=== PATIENT | female | born 2000 | race Caucasian/White ===

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

== ENCOUNTER 2020-10-02 09:46 | Emergency (ER) | payer SELFPAY ==
--- NOTE | 2020-10-02 09:56 | ED Physician Documentation ---
History of Present Illness - Stated complaint Stated Complaint: CHEST PX - Chief complaint Chief Complaint: Cardiac - History obtained from History obtained from: Patient - History of Present Illness Timing: Today, How many hours ago (5) Pain level max: 9 Pain level now: 8 - Additonal information Additional information: 19-year-old female presents to the emergency department complaining of epigastric pain. This been ongoing for the past 5 to 6 hours. Nothing makes it better or worse. No fevers. No chills. Some nausea but no vomiting. No diarrhea or constipation. Uses daily marijuana. Took Motrin without relief Review of Systems Constitutional: denies: Fever, Chills Nose: denies: Rhinorrhea / runny nose, Congestion Cardiac: denies: Chest pain / pressure Respiratory: denies: Cough GI: denies: Vomiting, Hematemesis, Bloody / black stool : denies: Dysuria Skin: denies: Rash Musculoskeletal: denies: Neck pain, Back pain Neurologic: denies: Headache PD PAST MEDICAL HISTORY - Past Medical History Respiratory: Asthma Neuro: Other Endocrine/Autoimmune: None - Past Surgical History Past Surgical History: No - Present Medications Home Medications: Ambulatory Orders Medication Instructions Recorded Confirmed Albuterol Sulf [Ventolin Hfa 2 puffs INH PRN 07/02/18 Inhaler] Famotidine [Pepcid] 20 mg ORAL DAILY 07/02/18 07/02/18 Ibuprofen [Motrin] 800 mg PO Q8H PRN #30 tablet 12/21/18 Naproxen 500 mg PO BID #20 tablet 07/22/19 Tramadol HCl 50 mg PO Q6H PRN #15 tablet 07/22/19 Promethazine [Phenergan] 25 mg PO Q6H PRN #10 tab 10/02/20 - Allergies Allergies/Adverse Reactions: Allergies Allergy/AdvReac Type Severity Reaction Status Date / Time No Known Drug Allergies Allergy Verified 07/22/19 16:13 - Social History Does the pt smoke?: No Smoking Status: Never smoker Does the pt drink ETOH?: No Does the pt have substance abuse?: No - Immunizations Immunizations are current?: Yes - POLST Patient has POLST: No PD ED PE NORMAL - Vitals Vital signs reviewed: Yes - General General: Alert and oriented X 3, No acute distress, Well developed/nourished - HEENT HEENT: PERRL, Moist mucous membranes - Neck Neck: Supple, no meningeal sign - Cardiac Cardiac: RRR, Strong equal pulses - Respiratory Respiratory: No respiratory distress, Clear bilaterally - Abdomen Abdomen: Normal bowel sounds, Soft, Non distended, Other (Negative Jarvis sign. Mild tenderness to palpation epigastric. No peritoneal signs.) - Back Back: No CVA TTP, No spinal TTP - Derm Derm: Warm and dry - Extremities Extremities: No edema - Neuro Neuro: Alert and oriented X 3 - Psych Psych: Normal mood, Normal affect Results - Vitals Vitals: Vital Signs - 24 hr 10/02/20 10/02/20 10/02/20 09:49 11:36 11:59 Temperature 36.9 C Heart Rate 52 L 53 L 53 L Respiratory 19 19 20 Rate Blood Pressure 130/89 H 139/73 H 139/73 H O2 Saturation 99 100 100 Oxygen O2 Source Room air - EKG (time done) 0948 Rate: Rate (enter#) (47) Rhythm: Sinus bradycardia, NSR (47) [place]: Normal Intervals: Normal [place] QRS: Normal Ischemia: Normal ST segments - Labs Labs: Laboratory Tests 10/02/20 10/02/20 10/02/20 09:18 10:28 10:28 WBC 13.9 H RBC 4.29 Hgb 13.0 Hct 38.7 MCV 90.2 MCH 30.3 MCHC 33.6 RDW 12.6 Plt Count 435 MPV 9.6 Neut # (Auto) 10.4 H Lymph # (Auto) 2.4 Bent # (Auto) 0.9 Eos # (Auto) 0.1 Baso # (Auto) 0.1 Absolute Nucleated RBC 0.00 Nucleated RBC % 0.0 Sodium 137 Potassium 3.6 Chloride 102 Carbon Dioxide 24 Anion Gap 11.0 BUN 7 Creatinine 0.6 Estimated GFR (MDRD) 129 Glucose 103 H Calcium 9.6 Total Bilirubin 0.3 AST 16 ALT 17 Alkaline Phosphatase 62 Total Protein 8.0 Albumin 4.5 Globulin 3.5 Albumin/Globulin Ratio 1.3 Lipase 19 L Urine Color YELLOW Urine Clarity CLEAR Urine pH 7.0 Ur Specific [place] 1.015 Urine Protein NEGATIVE Urine Glucose (UA) NEGATIVE Urine Ketones NEGATIVE Urine Occult Blood NEGATIVE Urine Nitrite NEGATIVE Urine Bilirubin NEGATIVE Urine Urobilinogen 0.2 (NORMAL) Ur Leukocyte Esterase NEGATIVE Ur Microscopic Review NOT INDICATED Urine Culture Comments NOT INDICATED Urine HCG, Qual NEGATIVE PD MEDICAL DECISION MAKING - ED course Complexity details: reviewed results, re-evaluated patient, considered differential, d/w patient ED course: 19 year old female with abdominal pain, vomiting. Appears to be secondary to likely gastroenteritis. She also has an incidental left ovarian cyst. Nonspecific gallbladder distention, no right upper quadrant tenderness on serial exam. Patient will follow up with her doctor for an outpatient ultrasound. Negative Jarvis sign. No fevers. Possible also that this could be cannabinoid induced hyperemesis as she does use daily marijuana. Did feel better after Haldol and sleeping in the emergency department. Tolerating p.o. without difficulty. Patient counseled regarding signs and symptoms for which I believe and urgent re-evaluation would be necessary. Patient with good understanding of and agreement to plan and is comfortable going home at this time This document was made in part using voice recognition software. While efforts are made to proofread this document, sound alike and grammatical errors may occur. 1. Mild segmental fluid distention of the distal ileum with gradual tapering to the ileocecal junction. No discrete focal transition point to suggest a definite obstruction. The findings likely represent an ileus or gastroenteritis. 2. Nonspecific gallbladder distention without wall thickening or calcified gallstones. No internal focus of fat density in the gallbladder may represent a small noncalcified gallstone. Recommend correlation clinically. If there is clinical suspicion for acute cholecystitis, further evaluation may be obtained with ultrasound. 3. There is a thin-walled left ovarian cyst measuring up to 8.7 cm likely repre senting a follicular cyst. Departure - Departure Disposition: 01 Home, Self Care Clinical Impression: Gastroenteritis Abdominal pain Qualifiers: Abdominal location: epigastric Qualified Code(s): R10.13 - Epigastric pain Ovarian cyst Qualifiers: Laterality: left Qualified Code(s): N83.202 - Unspecified ovarian cyst, left side Condition: Good Instructions: ED Gastroenteritis Viral Follow-Up: your,doctor in 1 week [Other] Prescriptions: Promethazine [Phenergan] 25 mg PO Q6H PRN #10 tab PRN Reason: Nausea / Vomiting Comments: Drink plenty of fluids and rest. Return if you worsen. Avoid marijuana. This is likely a viral illness. You should have an outpatient ultrasound of your gallbladder. Return if you worsen including worsening pain, vomiting or fever. You also should have a repeat ultrasound of your left ovarian cyst in about 4 to 6 weeks. This should be done with your doctor. CT Results: 1. Mild segmental fluid distention of the distal ileum with gradual tapering to the ileocecal junction. No discrete focal transition point to suggest a definite obstruction. The findings likely represent an ileus or gastroenteritis. 2. Nonspecific gallbladder distention without wall thickening or calcified gallstones. No internal focus of fat density in the gallbladder may represent a small noncalcified gallstone. Recommend correlation clinically. If there is clinical suspicion for acute cholecystitis, further evaluation may be obtained with ultrasound. 3. There is a thin-walled left ovarian cyst measuring up to 8.7 cm likely representing a follicular cyst.
[2020-10-02] MEDS ORDERED: SUCRALFATE 1 GM/10 ML UDC PO STA (10:15)
[2020-10-02] MEDS ORDERED: MAG HYDROX/AL HYDROX/SIMETH 30 ML UDC PO STA (10:15)
[2020-10-02] MEDS ORDERED: FAMOTIDINE 20 MG TABLET PO STA (10:15)
[2020-10-02] MEDS ORDERED: LIDOCAINE VISCOUS 2% 15 ML UDC MM STA (10:16)
[2020-10-02 10:34] LABS: BASOPHILS # (AUTO) 0.1 10^3/uL (0.0-0.1); BASOPHILS % (AUTO) 0.6 %; EOSINOPHILS # (AUTO) 0.1 10^3/uL (0.0-0.7); EOSINOPHILS % (AUTO) 0.6 %; LYMPHOCYTES # (AUTO) 2.4 10^3/uL (1.5-3.5); LYMPHOCYTES % (AUTO) 17.1 %; MEAN CORPUSCULAR HEMOGLOBIN 30.3 pg (27.0-31.0); MEAN CORPUSCULAR HGB CONC 33.6 g/dL (32.0-36.0); MEAN CORPUSCULAR VOLUME 90.2 fL (81.0-99.0); MEAN PLATELET VOLUME 9.6 fL (7.9-10.8); MONOCYTES # (AUTO) 0.9 10^3/uL (0.0-1.0); MONOCYTES % (AUTO) 6.5 %; NEUTROPHILS # (AUTO) 10.4 10^3/uL (1.5-6.6); NEUTROPHILS % (AUTO) 74.8 %; PLT - PLATELET COUNT 435 10^3/uL (130-450); RED BLOOD COUNT 4.29 10^6/uL (4.20-5.40); RED CELL DISTRIBUTION WIDTH 12.6 % (12.0-15.0); WHITE BLOOD COUNT 13.9 x10^3/uL (4.8-10.8)
[2020-10-02 10:49] LABS: ALBUMIN 4.5 g/dL (3.2-5.5); ALBUMIN/GLOBULIN RATIO 1.3 (1.0-2.2); BILIRUBIN,TOTAL 0.3 mg/dL (0.2-1.0); CALCIUM 9.6 mg/dL (8.5-10.3); CREATININE 0.6 mg/dL (0.4-1.0)
[2020-10-02 11:04] LABS: BILIRUBIN,URINE NEGATIVE (NEGATIVE); GLUCOSE, URINE (UA) NEGATIVE (NEGATIVE); KETONES,URINE (UA) NEGATIVE (NEGATIVE); LEUKOCYTE ESTERASE, URINE NEGATIVE (NEGATIVE); NITRITE,URINE NEGATIVE (NEGATIVE); OCCULT BLOOD,URINE NEGATIVE (NEGATIVE); PROTEIN,URINE NEGATIVE (NEGATIVE); UROBILINOGEN,URINE 0.2 (NORMAL) E.U./dL (NORMAL)
[2020-10-02 11:05] LABS: CLARITY,URINE CLEAR (CLEAR)
[2020-10-02 11:06] LABS: HCG UR QUAL NEGATIVE
[2020-10-02] MEDS ORDERED: LORazepam 2 MG/ML VIAL IVP STA (11:49)
[2020-10-02] MEDS ORDERED: PROMETHAZINE INJ 25 MG in SODIUM CHLORIDE 0.9% 50 ML IV STA (11:49)
[2020-10-02] MEDS ORDERED: HALOPERIDOL 5 MG/ML VIAL IVP STA (12:43)
[2020-10-02] MEDS ORDERED: IOVERSOL 320 100 ML VIAL IVP ONE ×2 (13:03→13:29)
--- NOTE | 2020-10-02 13:37 | CT Report ---
PROCEDURE: Abdomen/Pelvis W INDICATIONS: Abdominal pain, nausea CONTRAST: IV CONTRAST: Optiray 320 ml: 100 PO CONTRAST: *NO PO CONTRAST TECHNIQUE: After the administration of intravenous contrast, 5 mm thick sections acquired from the diaphragms to the symphysis. 5 mm thick coronal and sagittal reformats were acquired. For radiation dose reducti on, the following was used: automated exposure control, adjustment of mA and/or kV according to tushar ent size. COMPARISON: None. FINDINGS: Image quality: Excellent. ABDOMEN: Lung bases: There is mild dependent atelectasis bilaterally. Heart size is normal. Solid organs: Evaluation of the liver demonstrates no focal hepatic lesions. Gallbladder is distended without calcified gallstones or wall thickening. There is a small focus of internal fat density sugg estive of a small gallstone. Biliary system is non dilated. The spleen is normal in size. Pancreas e nhances normally without peripancreatic fat stranding or fluid collections. No adrenal nodules. Kid neys demonstrate no hydronephrosis. Peritoneum and bowel: There is mild fluid distention of the distal ileum in the lower abdomen, measu ring up to approximately 2.3 cm in diameter there are a few scattered fluid levels. There is gradual tapering distally to the terminal ileum without a focal transition point. The remainder of the small bowel is undistended proximally. The appendix is normal in appearance. There is colonic diverticulosi s without acute diverticulitis. No free fluid or air. Nodes and vessels: No retroperitoneal or mesenteric adenopathy by size criteria. Aorta and inferior vena cava are normal in size. Miscellaneous: No ventral hernias. PELVIS: Genitourinary: Bladder wall thickness is normal. There is a thin-walled left ovarian cyst measuring up to 8.7 cm likely representing a follicular cyst. Miscellaneous: No inguinal hernias or adenopathy. Bones: No suspicious bony lesions. No vertebral body compression fractures. IMPRESSION: 1. Mild segmental fluid distention of the distal ileum with gradual tapering to the ileocecal junctio n. No discrete focal transition point to suggest a definite obstruction. The findings likely represen t an ileus or gastroenteritis. 2. Nonspecific gallbladder distention without wall thickening or calcified gallstones. No internal fo cus of fat density in the gallbladder may represent a small noncalcified gallstone. Recommend correla tion clinically. If there is clinical suspicion for acute cholecystitis, further evaluation may be ob tained with ultrasound. Reviewed by: Jcarlos Srinivasan MD on 10/02/2020 1:36 PM PST Approved by: Jcarlos Srinivasan MD on 10/02/2020 1:36 PM PST Station ID: [id number]
[2020-10-02 13:58] VITALS: BP 129/72
== END 2020-10-02 13:56 | disposition home or self-care (01) ==
LOC: ED 09:46
DX: K52.9 Noninfective gastroenteritis and colitis, unspecified (principal); N83.202 Unspecified ovarian cyst, left side; K82.8 Other specified diseases of gallbladder; R00.1 Bradycardia, unspecified; F12.90 Cannabis use, unspecified, uncomplicated
CPT/HCPCS: 36415; 74177; 80053; 81003; 81025; 83690; 85025; 93005; 96365; 96375; 99284; A9270; J2060; J7040; Q9967; 81001; 87086

== ENCOUNTER 2020-11-04 18:17 | Emergency (ER) | payer MEDICAID ==
--- NOTE | 2020-11-04 18:37 | ED Physician Documentation ---
PD HPI ABD PAIN - Stated complaint Stated Complaint: CHEST & THROAT PX - Chief complaint Chief Complaint: Abd Pain - History obtained from History obtained from: Patient - Additional information Additional information: 20-year-old woman presents with what she thinks is acid reflux. Since 2 this morning she has had epigastric pain with some back heaviness. It is worse after she eats. She tried Tylenol and Pepcid without relief. She had a CT for similar issues about a month ago showing some distal ileus distention and gallbladder distention. Review of Systems Ten Systems: 10 systems reviewed and negative Constitutional: denies: Fever, Chills Cardiac: denies: Chest pain / pressure, Pedal edema, Calf pain Respiratory: denies: Dyspnea, Cough PD PAST MEDICAL HISTORY - Past Medical History Respiratory: Asthma Neuro: Other Endocrine/Autoimmune: None - Past Surgical History Past Surgical History: No - Present Medications Home Medications: Ambulatory Orders Medication Instructions Recorded Confirmed Albuterol Sulf [Ventolin Hfa 2 puffs INH PRN 07/02/18 Inhaler] Famotidine [Pepcid] 20 mg ORAL DAILY 07/02/18 07/02/18 Ibuprofen [Motrin] 800 mg PO Q8H PRN #30 tablet 12/21/18 Naproxen 500 mg PO BID #20 tablet 07/22/19 Tramadol HCl 50 mg PO Q6H PRN #15 tablet 07/22/19 Promethazine [Phenergan] 25 mg PO Q6H PRN #10 tab 10/02/20 Omeprazole 40 mg PO DAILY #30 cap 11/04/20 - Allergies Allergies/Adverse Reactions: Allergies Allergy/AdvReac Type Severity Reaction Status Date / Time No Known Drug Allergies Allergy Verified 07/22/19 16:13 - Social History Does the pt smoke?: No Smoking Status: Never smoker Does the pt drink ETOH?: No Does the pt have substance abuse?: No - Immunizations Immunizations are current?: Yes - POLST Patient has POLST: No PD ED PE NORMAL - Vitals Vital signs reviewed: Yes - General General: Alert and oriented X 3, No acute distress - HEENT HEENT: PERRL, EOMI - Neck Neck: Supple, no meningeal sign, No bony TTP - Cardiac Cardiac: RRR, No murmur - Respiratory Respiratory: No respiratory distress, Clear bilaterally - Abdomen Abdomen: Normal bowel sounds, Soft, Other (Tender in the right upper quadrant more than the epigastrium with equivocal Jarvis sign.) - Back Back: No CVA TTP, No spinal TTP - Derm Derm: Normal color, Warm and dry - Extremities Extremities: No edema, No calf tenderness / cord - Neuro Neuro: Alert and oriented X 3, Normal speech Results - Vitals Vitals: Vital Signs - 24 hr 11/04/20 11/04/20 18:26 18:28 Temperature 36.3 C L 36.3 C L Heart Rate 79 79 Respiratory 14 18 Rate Blood Pressure 135/75 H 135/75 H O2 Saturation 99 99 Oxygen O2 Source Room air - Labs Labs: Laboratory Tests 11/04/20 11/04/20 18:45 18:45 WBC 14.8 H RBC 4.13 L Hgb 12.5 Hct 38.5 MCV 93.2 MCH 30.3 MCHC 32.5 RDW 13.0 Plt Count 368 MPV 9.7 Neut # (Auto) 10.5 H Lymph # (Auto) 2.6 [place] # (Auto) 1.4 H Eos # (Auto) 0.2 Baso # (Auto) 0.1 Absolute Nucleated RBC 0.00 Nucleated RBC % 0.0 Sodium 138 Potassium 3.7 Chloride 103 Carbon Dioxide 26 Anion Gap 9.0 BUN 10 Creatinine 0.6 Estimated GFR (MDRD) 127 Glucose 96 Calcium 9.0 Total Bilirubin 0.5 AST 82 H ALT 59 Alkaline Phosphatase 61 Total Protein 7.3 Albumin 4.2 Globulin 3.1 Albumin/Globulin Ratio 1.4 Lipase 21 L PD MEDICAL DECISION MAKING - ED course ED course: 20-year-old woman presents with epigastric pain, she does have a white counts but no cholestatic picture. She did feel much better after a GI cocktail so I suspect this is predominantly GERD/gastritis. She is seeing someone about her gallbladder soon. Departure - Departure Disposition: 01 Home, Self Care Clinical Impression: Gastritis Qualifiers: Gastritis type: unspecified gastritis Chronicity: acute Gastritis bleeding: without bleeding Qualified Code(s): K29.00 - Acute gastritis without bleeding Condition: Good Record reviewed to determine appropriate education?: Yes Instructions: ED Gastritis Prescriptions: Omeprazole 40 mg PO DAILY #30 cap Comments: Keep the appointment you have to see the specialist regarding potential gallbladder issues. Return if worsening. You can take Maalox in addition to the prescription antacid for the pain.
[2020-11-04] MEDS ORDERED: LIDOCAINE VISCOUS 2% 15 ML UDC MM STA (18:38)
[2020-11-04] MEDS ORDERED: MAG HYDROX/AL HYDROX/SIMETH 30 ML UDC PO STA (18:38)
[2020-11-04 18:51] LABS: BASOPHILS # (AUTO) 0.1 10^3/uL (0.0-0.1); BASOPHILS % (AUTO) 0.6 %; EOSINOPHILS # (AUTO) 0.2 10^3/uL (0.0-0.7); EOSINOPHILS % (AUTO) 1.3 %; HCT - HEMATOCRIT 38.5 % (37.0-47.0); HGB - HEMOGLOBIN 12.5 g/dL (12.0-16.0); LYMPHOCYTES # (AUTO) 2.6 10^3/uL (1.5-3.5); LYMPHOCYTES % (AUTO) 17.3 %; MEAN CORPUSCULAR HEMOGLOBIN 30.3 pg (27.0-31.0); MEAN CORPUSCULAR HGB CONC 32.5 g/dL (32.0-36.0); MEAN CORPUSCULAR VOLUME 93.2 fL (81.0-99.0); MEAN PLATELET VOLUME 9.7 fL (7.9-10.8); MONOCYTES # (AUTO) 1.4 10^3/uL (0.0-1.0); MONOCYTES % (AUTO) 9.5 %; NEUTROPHILS # (AUTO) 10.5 10^3/uL (1.5-6.6); NEUTROPHILS % (AUTO) 70.9 %; PLT - PLATELET COUNT 368 10^3/uL (130-450); RED BLOOD COUNT 4.13 10^6/uL (4.20-5.40); WHITE BLOOD COUNT 14.8 x10^3/uL (4.8-10.8)
[2020-11-04 19:02] LABS: ALBUMIN 4.2 g/dL (3.2-5.5); ALBUMIN/GLOBULIN RATIO 1.4 (1.0-2.2); BILIRUBIN,TOTAL 0.5 mg/dL (0.2-1.0); CREATININE 0.6 mg/dL (0.4-1.0); POTASSIUM 3.7 mmol/L (3.5-5.0); TOTAL PROTEIN 7.3 g/dL (6.7-8.2)
[2020-11-04] MEDS ORDERED: PANTOPRAZOLE 40 MG TABLET PO STA (19:21)
[2020-11-04 19:29] VITALS: BP 124/80
== END 2020-11-04 19:28 | disposition home or self-care (01) ==
LOC: ED 18:17
DX: K29.00 Acute gastritis without bleeding (principal)
CPT/HCPCS: 80053; 83690; 85025; 99283; 99284; A9270; 36415

== ENCOUNTER 2021-03-30 20:28 | Emergency (ER) | payer MEDICAID ==
[2021-03-30] MEDS ORDERED: SODIUM CHLORIDE 0.9% 1,000 ML IV STA (22:00)
[2021-03-30] MEDS ORDERED: KETOROLAC 30 MG/ML VIAL IVP STA (22:00)
[2021-03-30] MEDS ORDERED: HYDROmorphone 1 MG/ML CARPUJECT IVP STA (22:00)
[2021-03-30] MEDS ORDERED: DEXAMETHASONE 10 MG/ML VIAL IVP STA (22:01)
[2021-03-30] MEDS ORDERED: PROPOFOL 200 MG/20 ML VIAL IVP STA (22:01)
--- NOTE | 2021-03-30 22:02 | ED Physician Documentation ---
PD HPI OPHTHO - Stated complaint Stated Complaint: LT EYE SWOLLEN/TOOTH PX/VOMIT - Chief complaint Chief Complaint: Heent - History obtained from History obtained from: Patient - Additional information Additional information: Progressive dental infection for the last 3 days now with significant pain and left-sided facial swelling. She has been on antibiotics for 3 days. Has seen a dentist. Review of Systems Constitutional: reports: Reviewed and negative Eyes: reports: Reviewed and negative Ears: reports: Reviewed and negative Nose: reports: Reviewed and negative Throat: reports: Reviewed and negative PD PAST MEDICAL HISTORY - Past Medical History Respiratory: Asthma Neuro: Other Endocrine/Autoimmune: None - Past Surgical History Past Surgical History: No - Present Medications Home Medications: Ambulatory Orders Medication Instructions Recorded Confirmed Albuterol Sulf [Ventolin Hfa 2 puffs INH PRN 07/02/18 Inhaler] Famotidine [Pepcid] 20 mg ORAL DAILY 07/02/18 07/02/18 Ibuprofen [Motrin] 800 mg PO Q8H PRN #30 tablet 12/21/18 Naproxen 500 mg PO BID #20 tablet 07/22/19 Tramadol HCl 50 mg PO Q6H PRN #15 tablet 07/22/19 Promethazine [Phenergan] 25 mg PO Q6H PRN #10 tab 10/02/20 Omeprazole 40 mg PO DAILY #30 cap 11/04/20 Oxycodone HCl/Acetaminophen 1 - 2 each PO Q6H PRN #14 tablet 03/30/21 [Percocet 5-325 mg Tablet] clindamycin HCL [Cleocin HCl] 300 mg PO QID #28 cap 03/30/21 - Allergies Allergies/Adverse Reactions: Allergies Allergy/AdvReac Type Severity Reaction Status Date / Time No Known Drug Allergies Allergy Verified 03/30/21 20:38 - Social History Does the pt smoke?: No Smoking Status: Never smoker Does the pt drink ETOH?: No Does the pt have substance abuse?: No - Immunizations Immunizations are current?: Yes - POLST Patient has POLST: No PD ED PE NORMAL - Vitals Vital signs reviewed: Yes - General General: Alert and oriented X 3, No acute distress - HEENT HEENT: Other (She has a abscess on the gingival area near #10 with significant facial swelling up to and around the eye.) - Neck Neck: Supple, no meningeal sign, No bony TTP - Neuro Neuro: Alert and oriented X 3, Normal speech - Psych Psych: Normal mood, Normal affect Results - Vitals Vitals: Vital Signs - 24 hr 03/30/21 20:34 Temperature 36.8 C Heart Rate 75 Respiratory 18 Rate Blood Pressure 129/77 O2 Saturation 98 Oxygen O2 Source Room air Procedures - Abscess I&D (location) Dental, L upper Incision: Incised with scalpel, Purulent drainage, Loculations broken Other: Antibiotic prescribed - Procedural sedation Sedation prep: Informed consent, Time out completed, Last meal (4hrs ago), PE performed (Mallampati 1), ASA 2 - mild disease (smoker) Sedation medications: propofol (100 mg IVP x1) Patient status during sedation: Responds to tactile, Vitals remained stable, Maintained airway Sedation recovery: Recovered uneventfully Time in sedation (Minutes): 12 PD MEDICAL DECISION MAKING - ED course ED course: 20-year-old woman with cavity related dental abscess causing significant facial cellulitis. She was sedated and the abscess was incised and drained. Given IV clindamycin here. Departure - Departure Clinical Impression: Dental abscess Condition: Good Record reviewed to determine appropriate education?: Yes Instructions: ED Dental Abscess Facial Cellulitis Follow-Up: ASHLEY FELIX [Physician No Access] - Prescriptions: clindamycin HCL [Cleocin HCl] 300 mg PO QID #28 cap Oxycodone HCl/Acetaminophen [Percocet 5-325 mg Tablet] 1 - 2 each PO Q6H PRN #14 tablet PRN Reason: pain Comments: Stop the amoxicillin, starting a different antibiotic. You have bad enough teet h issues that you probably should follow-up with an oral maxillofacial surgeon. There is one in [place]. His office is listed on this form, call Friday for an appointment. Return for new or worsening symptoms.
[2021-03-30] MEDS ORDERED: CLINDAMYCIN 600 MG/50 ML 50 ML IV ONE (22:33)
[2021-03-30] MEDS ORDERED: oxyCODONE/ACET 5/325 Prepack 4 PO STA (22:36)
[2021-03-30 23:36] VITALS: BP 123/71
== END 2021-03-30 23:45 | disposition home or self-care (01) ==
LOC: ED 20:28
DX: K04.7 Periapical abscess without sinus (principal)
CPT/HCPCS: 41800; 96365; 96375; 99152; 99283; 99284; J1170; 94770

== ENCOUNTER 2021-06-14 12:08 | Emergency (ER) | payer MEDICAID ==
--- NOTE | 2021-06-14 12:23 | ED Physician Documentation ---
PD HPI NVD - Stated complaint Stated Complaint: VOMITING,ABD PX - Chief complaint Chief Complaint: Abd Pain - History obtained from History obtained from: Patient - History of Present Illness Timing - onset: How many weeks ago (2) Timing - duration: Weeks (2) Timing - details: Gradual onset, Still present, Waxing and waning Associated symptoms: Abdominal pain (upper abdomen), Loss of appetite. No: Near syncope / syncope Review of Systems Constitutional: reports: Fatigue. denies: Fever, Chills, Myalgias Nose: denies: Rhinorrhea / runny nose, Congestion Throat: denies: Sore throat Respiratory: denies: Cough GI: reports: Abdominal Pain (has developed some pain in upper abd with vomiting.), Nausea, Vomiting. denies: Constipation, Diarrhea : reports: Now EGA (7 weeks by dates, with positive home test. Has not had GOLF TECHNICIAN appt as yet.). denies: Dysuria, Frequency Neurologic: reports: Generalized weakness. 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 - Past Surgical History Past Surgical History: Yes General: Cholecystectomy - Present Medications Home Medications: Ambulatory Orders Medication Instructions Recorded Confirmed Albuterol Sulf [Ventolin Hfa 2 puffs INH Q4HR PRN 07/02/18 Inhaler] Doxylamine Succinate [Unisom] 25 mg PO BID 30 Days #60 tablet 06/14/21 Famotidine [Pepcid] 20 mg PO DAILY #30 tablet 06/14/21 Ondansetron Odt [Zofran] 4 mg TL Q6H PRN #20 tablet 06/14/21 Pnv No.121/Iron/Folic Acid 1 tab PO DAILY 06/14/21 06/14/21 [ Multivitamin Tablet] Pyridoxine HCl (Vitamin B6) 25 mg PO BID 30 Days #60 tablet 06/14/21 [Pyridoxine HCl] dexAMETHasone [Decadron] 4 mg PO DAILY #5 tablet 06/14/21 - Allergies Allergies/Adverse Reactions: Allergies Allergy/AdvReac Type Severity Reaction Status Date / Time No Known Drug Allergies Allergy Verified 06/14/21 12:17 - Social History Does the pt smoke?: Yes Smoking Status: Current every day smoker Does the pt drink ETOH?: No Does the pt have substance abuse?: Yes - Immunizations Immunizations are current?: Yes - POLST Patient has POLST: No PD ED PE NORMAL - Vitals Vital signs reviewed: Yes - General General: Alert and oriented X 3, No acute distress, Well developed/nourished - HEENT HEENT: Pharynx benign. No: Moist mucous membranes - Neck Neck: Supple, no meningeal sign, No adenopathy - Cardiac Cardiac: RRR, No murmur - Respiratory Respiratory: Clear bilaterally - Abdomen Abdomen: Normal bowel sounds, Soft, Non distended, No organomegaly, Other (nondistended, with some tenderness epigastric area. ) - Derm Derm: Normal color, Warm and dry - Extremities Extremities: No edema, No calf tenderness / cord Results - Vitals Vitals: Oxygen O2 Source Room air - Labs Labs: Laboratory Tests 06/14/21 06/14/21 06/14/21 12:27 12:27 12:27 WBC 9.4 RBC 4.52 Hgb 13.9 Hct 40.5 MCV 89.6 MCH 30.8 MCHC 34.3 RDW 13.1 Plt Count 338 MPV 10.1 Neut # (Auto) 6.7 H Lymph # (Auto) 1.8 [place] # (Auto) 0.8 Eos # (Auto) 0.1 Baso # (Auto) 0.0 Absolute Nucleated RBC 0.00 Nucleated RBC % 0.0 Sodium 138 Potassium 3.6 Chloride 104 Carbon Dioxide 23 Anion Gap 11.0 BUN 11 Creatinine 0.4 Estimated GFR (MDRD) 203 Glucose 91 Calcium 10.2 Magnesium 1.8 Total Bilirubin 1.6 H AST 14 ALT 15 Alkaline Phosphatase 48 Total Protein 8.5 H Albumin 4.8 Globulin 3.7 Albumin/Globulin Ratio 1.3 Lipase 24 HCG, Quant 15969.00 - Rads (name of study) OB u?S Radiology: Prelim report reviewed (Single live IUP 7.3 weeks, with small 1.1 cm perigestational bleed. Ovaries normal. ), See rad report PD MEDICAL DECISION MAKING - ED course Complexity details: reviewed results ( IUP with good FHR and no acute p rocess. ), re-evaluated patient (improved symptoms. ), considered differential, d/w patient Departure - Departure Disposition: 01 Home, Self Care Clinical Impression: Dehydration, Hyperemesis gravidarum Nausea and vomiting Qualifiers: Vomiting type: unspecified Vomiting Intractability: intractable Qualified Code(s): R11.2 - Nausea with vomiting, unspecified Qualifiers: Weeks of gestation: less than 8 weeks Qualified Code(s): Z3A.01 - Less than 8 weeks gestation of Condition: Stable Record reviewed to determine appropriate education?: Yes Instructions: ED Preg Morning Sickness Prescriptions: dexAMETHasone [Decadron] 4 mg PO DAILY #5 tablet Famotidine [Pepcid] 20 mg PO DAILY #30 tablet Pyridoxine HCl (Vitamin B6) [Pyridoxine HCl] 25 mg PO BID 30 Days #60 tablet Doxylamine Succinate [Unisom] 25 mg PO BID 30 Days #60 tablet Ondansetron Odt [Zofran] 4 mg TL Q6H PRN #20 tablet PRN Reason: Nausea / Vomiting Comments: Your ultrasound is good with a normal-appearing at 7-1/2 weeks in the uterus. No other problems noted on the ultrasound. Your blood tests are looking okay. Presume your nausea and vomiting are related to the and this can be treated with medications recommended by GOLF TECHNICIAN societies for the treatment of this. This is a combination of vitamin B6 pyridoxine as well as doxylamine regularly. To that add ondansetron if needed for nausea in addition. We will also use Decadron steroid daily for 5 days to help with the settle down the nausea and vomiting in the short-term as well. With the prolonged nausea and vomiting, you likely have some irritation of the stomach so we can treat with famotidine acid reducing medicine daily for the next several weeks. All of these are safe in . Follow-up with GOLF TECHNICIAN as planned. Return to the ER sooner if needed. I transmitted your prescriptions to [facility] pharmacy in [place]. Discharge Date/Time: 06/14/21 15:10
[2021-06-14] MEDS ORDERED: FAMOTIDINE 20 MG/2 ML VIAL IVP STA (12:47)
[2021-06-14] MEDS ORDERED: ONDANSETRON 4 MG/2 ML VIAL IVP STA (12:47)
[2021-06-14] MEDS ORDERED: DEXAMETHASONE 10 MG/ML VIAL IVP STA (12:47)
[2021-06-14] MEDS ORDERED: SODIUM CHLORIDE 0.9% 1,000 ML IV STA ×2 (12:47→14:04)
[2021-06-14 12:52] LABS: BASOPHILS % (AUTO) 0.4 %; EOSINOPHILS # (AUTO) 0.1 10^3/uL (0.0-0.7); EOSINOPHILS % (AUTO) 0.5 %; HCT - HEMATOCRIT 40.5 % (37.0-47.0); HGB - HEMOGLOBIN 13.9 g/dL (12.0-16.0); LYMPHOCYTES # (AUTO) 1.8 10^3/uL (1.5-3.5); LYMPHOCYTES % (AUTO) 19.2 %; MEAN CORPUSCULAR HEMOGLOBIN 30.8 pg (27.0-31.0); MEAN CORPUSCULAR HGB CONC 34.3 g/dL (32.0-36.0); MEAN CORPUSCULAR VOLUME 89.6 fL (81.0-99.0); MEAN PLATELET VOLUME 10.1 fL (7.9-10.8); MONOCYTES # (AUTO) 0.8 10^3/uL (0.0-1.0); MONOCYTES % (AUTO) 8.1 %; NEUTROPHILS # (AUTO) 6.7 10^3/uL (1.5-6.6); NEUTROPHILS % (AUTO) 71.6 %; PLT - PLATELET COUNT 338 10^3/uL (130-450); RED BLOOD COUNT 4.52 10^6/uL (4.20-5.40); RED CELL DISTRIBUTION WIDTH 13.1 % (12.0-15.0); WHITE BLOOD COUNT 9.4 x10^3/uL (4.8-10.8)
[2021-06-14 13:08] LABS: ALBUMIN 4.8 g/dL (3.2-5.5); ALBUMIN/GLOBULIN RATIO 1.3 (1.0-2.2); BILIRUBIN,TOTAL 1.6 mg/dL (0.2-1.0); CALCIUM 10.2 mg/dL (8.5-10.3); CREATININE 0.4 mg/dL (0.4-1.0); MAGNESIUM 1.8 mg/dL (1.7-2.8); POTASSIUM 3.6 mmol/L (3.5-5.0); TOTAL PROTEIN 8.5 g/dL (6.7-8.2)
[2021-06-14] MEDS ORDERED: PROCHLORPERAZINE 10 MG/2 ML VIAL IVP STA (14:04)
--- NOTE | 2021-06-14 14:52 | Ultrasound Report ---
PROCEDURE: OB First Trimester w/TV INDICATIONS: 7 wks preg. abd pain and vomiting OUTSIDE/PRIOR DATING DATA: Last menstrual period (LMP): 04/20/2021. LMP-based estimated date of delivery (TOBI): 01/25/2022. First dating scan (date and location): 06/14/2021. Estimated date of delivery (TOBI) from first dating scan: 01/28/2022. TECHNIQUE: Real-time scanning was performed of the fetus and maternal pelvic organs, with image documentation. Endovaginal scanning was also performed to better visualize the fetus and maternal ovaries. COMPARISON: None FINDINGS: Single intrauterine gestational sac contains a pole and yolk sac. [place]-rump length measures 1. 19 cm, corresponding with a 7 week 3 day gestation. heart rate 145 bpm. There is a small subcho rionic bleed measuring 1.1 x 0.3 cm. Left ovarian simple cyst measures 4.2 x 3.3 cm. Right ovarian corpus luteum cyst measures 1.8 x 1.9 c m Measurement variability in dating: +/- 4 weeks by LMP, +/- 7 days by mean sac diameter (use before 6 weeks gestation if crown-rump length not able to be measured), +/- 5 days by crown-rump length (6-12 weeks gestation). IMPRESSION: 1. Single live intrauterine corresponds with a 7 week 3 day gestation 2. Small perigestational bleed measures 1.1 x 0.3 cm Reviewed by: John Paul MD on 06/14/2021 1:50 PM AKBERYL Approved by: John Paul MD on 06/14/2021 1:50 PM AKDT Station ID: [id number]
[2021-06-14 15:12] VITALS: BP 106/63
== END 2021-06-14 15:10 | disposition home or self-care (01) ==
LOC: ED 12:08
DX: O21.1 Hyperemesis gravidarum with metabolic disturbance (principal); O99.331 Smoking (tobacco) complicating pregnancy, first trimester; F17.200 Nicotine dependence, unspecified, uncomplicated; Z3A.01 Less than 8 weeks gestation of pregnancy
CPT/HCPCS: 36415; 80053; 83690; 83735; 84702; 85025; 96361; 96374; 96375; 99283

== ENCOUNTER 2021-08-07 11:54 | Emergency (ER) | payer MEDICAID ==
[2021-08-07 13:11] LABS: BASOPHILS # (AUTO) 0.1 10^3/uL (0.0-0.1); BASOPHILS % (AUTO) 0.4 %; EOSINOPHILS # (AUTO) 0.2 10^3/uL (0.0-0.7); EOSINOPHILS % (AUTO) 1.1 %; HCT - HEMATOCRIT 38.1 % (37.0-47.0); LYMPHOCYTES # (AUTO) 2.7 10^3/uL (1.5-3.5); LYMPHOCYTES % (AUTO) 18.6 %; MEAN CORPUSCULAR HEMOGLOBIN 31.6 pg (27.0-31.0); MEAN CORPUSCULAR HGB CONC 34.1 g/dL (32.0-36.0); MEAN CORPUSCULAR VOLUME 92.5 fL (81.0-99.0); MEAN PLATELET VOLUME 9.2 fL (7.9-10.8); MONOCYTES # (AUTO) 1.1 10^3/uL (0.0-1.0); MONOCYTES % (AUTO) 7.7 %; NEUTROPHILS # (AUTO) 10.1 10^3/uL (1.5-6.6); PLT - PLATELET COUNT 349 10^3/uL (130-450); RED BLOOD COUNT 4.12 10^6/uL (4.20-5.40); WHITE BLOOD COUNT 14.3 x10^3/uL (4.8-10.8)
[2021-08-07] MEDS ORDERED: METOCLOPRAMIDE 10 MG/2 ML VIAL IVP STA (13:19)
[2021-08-07] MEDS ORDERED: SODIUM CHLORIDE 0.9% 1,000 ML IV STA ×2 (13:19→13:59)
--- NOTE | 2021-08-07 13:20 | ED Physician Documentation ---
History of Present Illness - Stated complaint Stated Complaint: VOMITING BLOOD - Chief complaint Chief Complaint: General - History obtained from History obtained from: Patient - History of Present Illness Timing: Last night Pain level max: 3 Pain level now: 2 - Additonal information Additional information: Patient is a 20-year-old female who is about 15 weeks . She states last night started vomiting. She was taking Reglan without relief. Has generalized abdominal cramping. No vaginal bleeding or discharge. Nothing makes it better or worse. No fevers. No chills. 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 - Past Surgical History Past Surgical History: Yes General: Cholecystectomy - Present Medications Home Medications: Ambulatory Orders Medication Instructions Recorded Confirmed Albuterol Sulf [Ventolin Hfa 2 puffs INH Q4HR PRN 07/02/18 08/07/21 Inhaler] Doxylamine Succinate [Unisom] 25 mg PO BID 30 Days #60 tablet 06/14/21 08/07/21 Famotidine [Pepcid] 20 mg PO DAILY #30 tablet 06/14/21 08/07/21 Ondansetron Odt [Zofran] 4 mg TL Q6H PRN #20 tablet 06/14/21 08/07/21 Pnv No.121/Iron/Folic Acid 1 tab PO DAILY 06/14/21 08/07/21 [ Multivitamin Tablet] Pyridoxine HCl (Vitamin B6) 25 mg PO BID 30 Days #60 tablet 06/14/21 08/07/21 [Pyridoxine HCl] - Allergies Allergies/Adverse Reactions: Allergies Allergy/AdvReac Type Severity Reaction Status Date / Time No Known Drug Allergies Allergy Verified 08/07/21 12:04 - Social History Does the pt smoke?: Yes Smoking Status: Current every day smoker Does the pt drink ETOH?: No Does the pt have substance abuse?: Yes - Immunizations Immunizations are current?: Yes - POLST Patient has POLST: No PD ED PE NORMAL - Vitals Vital signs reviewed: Yes - General General: Alert and oriented X 3, No acute distress - HEENT HEENT: Moist mucous membranes - Neck Neck: Supple, no meningeal sign - Cardiac Cardiac: RRR - Respiratory Respiratory: No respiratory distress, Clear bilaterally - Abdomen Abdomen: Soft, Non tender, Non distended - Derm Derm: Warm and dry, No rash - Extremities Extremities: No edema, No calf tenderness / cord - Neuro Neuro: Alert and oriented X 3 - Psych Psych: Normal mood, Normal affect Results - Vitals Vitals: Vital Signs - 24 hr 08/07/21 08/07/21 08/07/21 12:01 13:29 15:58 Temperature 36.5 C 36.5 C Heart Rate 72 70 78 Respiratory 15 16 18 Rate Blood Pressure 114/76 116/61 99/62 O2 Saturation 98 100 99 Oxygen O2 Source Room air - Labs Labs: Laboratory Tests 08/07/21 08/07/21 08/07/21 13:07 13:07 15:00 WBC 14.3 H RBC 4.12 L Hgb 13.0 Hct 38.1 MCV 92.5 MCH 31.6 H MCHC 34.1 RDW 13.0 Plt Count 349 MPV 9.2 Neut # (Auto) 10.1 H Lymph # (Auto) 2.7 [place] # (Auto) 1.1 H Eos # (Auto) 0.2 Baso # (Auto) 0.1 Absolute Nucleated RBC 0.00 Nucleated RBC % 0.0 Sodium 133 L Potassium 3.6 Chloride 99 L Carbon Dioxide 23 Anion Gap 11.0 BUN 9 Creatinine 0.4 Estimated GFR (MDRD) 203 Glucose 90 Calcium 9.1 Total Bilirubin 0.7 AST 15 ALT 21 Alkaline Phosphatase 42 Total Protein 7.9 Albumin 3.8 Globulin 4.1 Albumin/Globulin Ratio 0.9 L Lipase 19 L Urine Color DARK YELLOW Urine Clarity HAZY Urine pH 6.0 Ur Specific [place] 1.025 Urine Protein NEGATIVE Urine Glucose (UA) NEGATIVE Urine Ketones >=80 H Urine Occult Blood NEGATIVE Urine Nitrite NEGATIVE Urine Bilirubin NEGATIVE Urine Urobilinogen 0.2 (NORMAL) Ur Leukocyte Esterase NEGATIVE Urine RBC 0-5 Urine WBC 0-3 Ur Squamous Epith Cells MOD Squamous H Urine Bacteria Moderate H Ur Microscopic Review INDICATED Urine Culture Comments NOT INDICATED PD MEDICAL DECISION MAKING - ED course Complexity details: reviewed results, re-evaluated patient, considered differential, d/w patient ED course: Bedside ultrasound reveals an intrauterine with a FHR of 163 bpm. Images were shown to the patient. Patient is well-appearing, nontoxic. Afebrile. Tolerating p.o. without difficulty after Reglan. No significant lab abnormalities. Has Reglan at home. We will continue this. Patient counseled regarding signs and symptoms for which I believe and urgent re-evaluation would be necessary. Patient with good understanding of and agreement to plan and is comfortable going home at this time This document was made in part using voice recognition software. While efforts are made to proofread this document, sound alike and grammatical errors may occur. Departure - Departure Disposition: 01 Home, Self Care Clinical Impression: Nausea and vomiting Qualifiers: Vomiting type: unspecified Qualified Code(s): R11.2 - Nausea with vomiting, unspecified Qualifiers: Weeks of gestation: 15 weeks Qualified Code(s): Z3A.15 - 15 weeks gestation of Condition: Good Instructions: ED Preg Morning Sickness Follow-Up: ANNIKA SOLOMON, [Primary Care Provider] - Comments: Continue your metoclopramide at home. Return if you worsen. Follow-up with your OB for further care. Discharge Date/Time: 08/07/21 15:59
[2021-08-07 13:29] LABS: ALBUMIN 3.8 g/dL (3.2-5.5); ALBUMIN/GLOBULIN RATIO 0.9 (1.0-2.2); BILIRUBIN,TOTAL 0.7 mg/dL (0.2-1.0); CALCIUM 9.1 mg/dL (8.5-10.3); CREATININE 0.4 mg/dL (0.4-1.0); POTASSIUM 3.6 mmol/L (3.5-5.0); TOTAL PROTEIN 7.9 g/dL (6.7-8.2)
[2021-08-07 15:13] LABS: GLUCOSE, URINE (UA) NEGATIVE (NEGATIVE); KETONES,URINE (UA) >=80 mg/dL (NEGATIVE); LEUKOCYTE ESTERASE, URINE NEGATIVE (NEGATIVE); NITRITE,URINE NEGATIVE (NEGATIVE); OCCULT BLOOD,URINE NEGATIVE (NEGATIVE); PROTEIN,URINE NEGATIVE (NEGATIVE); UROBILINOGEN,URINE 0.2 (NORMAL) E.U./dL (NORMAL)
[2021-08-07 15:14] LABS: CLARITY,URINE HAZY (CLEAR)
[2021-08-07 15:19] LABS: BILIRUBIN,URINE NEGATIVE (NEGATIVE); ICTOTEST,URINE NEGATIVE
[2021-08-07 15:30] LABS: BACTERIA,URINE Moderate /HPF (None Seen); RBC,URINE 0-5 /HPF (0-5); SQUAMOUS EPITHELIAL CELL,UR MOD Squamous (<= Few); WBC,URINE 0-3 /HPF (0-5)
[2021-08-07 16:00] VITALS: BP 99/62
== END 2021-08-07 15:59 | disposition home or self-care (01) ==
LOC: ED 11:54
DX: O21.8 Other vomiting complicating pregnancy (principal); Z3A.15 15 weeks gestation of pregnancy; O99.331 Smoking (tobacco) complicating pregnancy, first trimester; F17.200 Nicotine dependence, unspecified, uncomplicated
CPT/HCPCS: 36415; 80053; 81001; 83690; 85025; 96361; 96374; 99283; J2765; 81003; 87086

== ENCOUNTER 2021-08-14 13:09 | Emergency (ER) | payer MEDICAID ==
[2021-08-14 13:20] VITALS: BP 116/74
[2021-08-14 13:37] LABS: BASOPHILS # (AUTO) 0.1 10^3/uL (0.0-0.1); BASOPHILS % (AUTO) 0.5 %; EOSINOPHILS # (AUTO) 0.1 10^3/uL (0.0-0.7); EOSINOPHILS % (AUTO) 0.4 %; HCT - HEMATOCRIT 38.7 % (37.0-47.0); HGB - HEMOGLOBIN 13.3 g/dL (12.0-16.0); LYMPHOCYTES # (AUTO) 2.2 10^3/uL (1.5-3.5); LYMPHOCYTES % (AUTO) 16.6 %; MEAN CORPUSCULAR HEMOGLOBIN 31.1 pg (27.0-31.0); MEAN CORPUSCULAR HGB CONC 34.4 g/dL (32.0-36.0); MEAN CORPUSCULAR VOLUME 90.4 fL (81.0-99.0); MEAN PLATELET VOLUME 9.4 fL (7.9-10.8); MONOCYTES % (AUTO) 7.2 %; NEUTROPHILS % (AUTO) 74.3 %; PLT - PLATELET COUNT 367 10^3/uL (130-450); RED BLOOD COUNT 4.28 10^6/uL (4.20-5.40); RED CELL DISTRIBUTION WIDTH 12.7 % (12.0-15.0); WHITE BLOOD COUNT 13.4 x10^3/uL (4.8-10.8)
[2021-08-14 13:51] LABS: ALBUMIN 4.2 g/dL (3.2-5.5); BILIRUBIN,TOTAL 1.3 mg/dL (0.2-1.0); CALCIUM 9.9 mg/dL (8.5-10.3); CREATININE 0.5 mg/dL (0.4-1.0); TOTAL PROTEIN 8.6 g/dL (6.7-8.2)
[2021-08-14] MEDS ORDERED: SODIUM CHLORIDE 0.9% 1,000 ML IV STA (14:54)
[2021-08-14] MEDS ORDERED: METOCLOPRAMIDE 10 MG/2 ML VIAL IVP STA (14:54)
--- NOTE | 2021-08-14 14:59 | ED Physician Documentation ---
PD HPI NVD - Stated complaint Stated Complaint: INTRACTABLE VOMITTING - Chief complaint Chief Complaint: Abd Pain - History obtained from History obtained from: Patient - History of Present Illness Timing - onset: How many days ago (2) Timing - duration: Days (2) Timing - details: Gradual onset, Still present Associated symptoms: No: Fever, Abdominal pain, Chest pain, Hematemesis Contributing factors: Other (, uses cannabis) Improved by: Vomiting Worsened by: Eating Similar symptoms before: Diagnosis (hyperemesis gravidarium and prior episodes of vomiting prior to .) Recently seen: Emergency Dept - Additonal information Additional information: 20-year-old female who is 16 weeks has developed nausea and vomiting that she has not been able to control over the past 2 days. She said this happened to her previously was seen in the emerge department last week given IV fluids and Reglan. She does not recall how she responded to that. She states that medicine she has at home are not helping. She does not know the names of these medicines.She has been She does use cannabis regularly feels that this is the only thing that is allowing her to eat recently. Pain in the emergency department a number of times for nausea vomiting and reflux symptoms.She has had improvement in her reflux symptoms previously with the use of Haldol. Review of Systems Constitutional: denies: Fever Eyes: denies: Decreased vision Ears: denies: Ear pain Nose: denies: Congestion Throat: denies: Sore throat Cardiac: denies: Chest pain / pressure, Palpitations Respiratory: denies: Dyspnea, Cough GI: reports: Nausea, Vomiting. 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 : None HEENT: None Psych: ADD/ADHD Musculoskeletal: None Derm: None - Past Surgical History Past Surgical History: Yes General: Cholecystectomy - Present Medications Home Medications: Ambulatory Orders Medication Instructions Recorded Confirmed Albuterol Sulf [Ventolin Hfa 2 puffs INH Q4HR PRN 07/02/18 08/07/21 Inhaler] Doxylamine Succinate [Unisom] 25 mg PO BID 30 Days #60 tablet 06/14/21 08/07/21 Famotidine [Pepcid] 20 mg PO DAILY #30 tablet 06/14/21 08/07/21 Ondansetron Odt [Zofran] 4 mg TL Q6H PRN #20 tablet 06/14/21 08/07/21 Pnv No.121/Iron/Folic Acid 1 tab PO DAILY 06/14/21 08/07/21 [ Multivitamin Tablet] Pyridoxine HCl (Vitamin B6) 25 mg PO BID 30 Days #60 tablet 06/14/21 08/07/21 [Pyridoxine HCl] Ondansetron Odt [Zofran] 4 mg TL Q6H PRN #10 tablet 08/14/21 - Allergies Allergies/Adverse Reactions: Allergies Allergy/AdvReac Type Severity Reaction Status Date / Time No Known Drug Allergies Allergy Verified 08/14/21 13:21 - Social History Does the pt smoke?: Yes Smoking Status: Current every day smoker Does the pt drink ETOH?: No Does the pt have substance abuse?: Yes - Immunizations Immunizations are current?: Yes - POLST Patient has POLST: No PD ED PE NORMAL - General General: Alert and oriented X 3, No acute distress, Well developed/nourished - HEENT HEENT: Atraumatic, PERRL, EOMI - Neck Neck: Supple, no meningeal sign, No bony TTP - Cardiac Cardiac: RRR, No murmur - Respiratory Respiratory: No respiratory distress, Clear bilaterally - Abdomen Abdomen: Normal bowel sounds, Soft, Non tender, Non distended, No organomegaly - Back Back: No CVA TTP, No spinal TTP - Derm Derm: Normal color, Warm and dry, No rash - Extremities Extremities: No deformity, No edema - Neuro Neuro: Alert and oriented X 3, termination clerk 2-12 intact, No motor deficit, No sensory deficit, Normal speech Eye Opening: Spontaneous Motor: Obeys Commands Verbal: Oriented GCS Score: 15 - Psych Psych: Normal mood, Normal affect Results - Vitals Vitals: Vital Signs - 24 hr 08/14/21 13:14 Temperature 36.7 C Heart Rate 88 Respiratory 15 Rate Blood Pressure 116/74 O2 Saturation 99 Oxygen O2 Source Room air - Labs Labs: Laboratory Tests 08/14/21 08/14/21 13:32 13:32 WBC 13.4 H RBC 4.28 Hgb 13.3 Hct 38.7 MCV 90.4 MCH 31.1 H MCHC 34.4 RDW 12.7 Plt Count 367 MPV 9.4 Neut # (Auto) 10.0 H Lymph # (Auto) 2.2 Baldwin # (Auto) 1.0 Eos # (Auto) 0.1 Baso # (Auto) 0.1 Absolute Nucleated RBC 0.00 Nucleated RBC % 0.0 Sodium 136 Potassium 4.0 Chloride 101 Carbon Dioxide 23 Anion Gap 12.0 BUN 8 Creatinine 0.5 Estimated GFR (MDRD) 157 Glucose 89 Calcium 9.9 Total Bilirubin 1.3 H AST 16 ALT 16 Alkaline Phosphatase 38 L Total Protein 8.6 H Albumin 4.2 Globulin 4.3 H Albumin/Globulin Ratio 1.0 Lipase 21 L PD MEDICAL DECISION MAKING - ED course Complexity details: reviewed old records, reviewed results, re-evaluated patient, considered differential, d/w patient ED course: 20-year-old female reports to the emergency department with uncontrolled nausea and vomiting over the past 2 days being 16 weeks . She is uncertain about the antinausea medicine she has been trying to take. It does not seem to have been working at home. Her record indicates that she had some Reglan on her past visit with improvement. She does admit to daily cannabis use feels that that is what is helping her with her ability to have anything to eat. In review of the patient's record there is suspicion of cannabis hyperemesis. Today she is treated with a dose of Reglan and Benadryl as well as IV fluid and fci through her IV fluid back she suddenly wants to leave the emergency department. She has had a dystonic reaction to the Reglan. I prescribed some Zofran for her and recommend she discontinue the use of cannabis. Departure - Departure Disposition: 01 Home, Self Care Clinical Impression: Hyperemesis gravidarum Instructions: ED Preg Morning Sickness Follow-Up: Austin Newton SR, MD [Primary Care Provider] - Prescriptions: Ondansetron Odt [Zofran] 4 mg TL Q6H PRN #10 tablet PRN Reason: Nausea / Vomiting Comments: Alley, today it looks like you have had an unpleasant reaction to the Reglan we gave you. I have written a prescription for some Zofran for you to take and I recommend you discontinue the use of cannabis for now. There can be an association with excessive vomiting and heartburn associated with cannabis use that can be difficult to treat. A prescription for Zofran has been E scribed to [facility] in [place] Discharge Date/Time: 08/14/21 15:39
[2021-08-14] MEDS ORDERED: diphenhydrAMINE INJ 50 MG/ML VIAL IVP STA (15:00)
== END 2021-08-14 15:39 | disposition home or self-care (01) ==
LOC: ED 13:09
DX: O21.0 Mild hyperemesis gravidarum (principal); O99.332 Smoking (tobacco) complicating pregnancy, second trimester; F17.200 Nicotine dependence, unspecified, uncomplicated; Z3A.14 14 weeks gestation of pregnancy
CPT/HCPCS: 36415; 80053; 83690; 85025; 96374; 96375; 99283; J1200; J2765

== ENCOUNTER 2021-11-04 06:58 | Emergency (ER) | payer MEDICAID ==
[2021-11-04 07:13] VITALS: BP 114/66
--- NOTE | 2021-11-04 07:29 | ED Physician Documentation ---
PD HPI HEENT - Stated complaint Stated Complaint: PX MOUTH - Chief complaint Chief Complaint: Heent - History obtained from History obtained from: Patient - History of Present Illness Timing - onset: Enter time (399), Today Timing - duration: Hours Timing - details: Abrupt onset, Still present Location: Tooth Improves: Medication Worsens: Temperatures, Everything Associated symptoms: No: Facial swelling, Headache, Cough Similar symptoms before: Diagnosis (dental abscess) Recently seen: Other (6 months and receiving routine pre-julia care.) - Additional information Additional information: 21-year-old female who is 6 months has developed pain in her teeth. She has 2 teeth that are bothering her quite a bit right now and start about 4:00 in the morning she is a been unable to sleep and is in misery. She has had this happen to her previously she is not currently have a dentist. She has very carious teeth. She is getting care by Dr. Gaviria in [place] and she has a primary care Dr. Austin Pearce in [place] as well. She does not currently have a dentist. Review of Systems Constitutional: denies: Fever Throat: reports: Dental pain / toothache. 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 : None HEENT: None Psych: ADD/ADHD Musculoskeletal: None Derm: None - Past Surgical History Past Surgical History: Yes General: Cholecystectomy - Present Medications Home Medications: Ambulatory Orders Medication Instructions Recorded Confirmed Albuterol Sulf [Ventolin Hfa 2 puffs INH Q4HR PRN 07/02/18 08/07/21 Inhaler] Doxylamine Succinate [Unisom] 25 mg PO BID 30 Days #60 tablet 06/14/21 08/07/21 Famotidine [Pepcid] 20 mg PO DAILY #30 tablet 06/14/21 08/07/21 Ondansetron Odt [Zofran] 4 mg TL Q6H PRN #20 tablet 06/14/21 08/07/21 Pnv No.121/Iron/Folic Acid 1 tab PO DAILY 06/14/21 08/07/21 [ Multivitamin Tablet] Pyridoxine HCl (Vitamin B6) 25 mg PO BID 30 Days #60 tablet 06/14/21 08/07/21 [Pyridoxine HCl] Ondansetron Odt [Zofran] 4 mg TL Q6H PRN #10 tablet 08/14/21 Amoxicillin 875 mg PO BID #14 tablet 11/04/21 HYDROcod/ACETAM 5/325 [Anton 5/325] 1 - 2 tablet PO Q6H PRN #14 tablet 11/04/21 - Allergies Allergies/Adverse Reactions: Allergies Allergy/AdvReac Type Severity Reaction Status Date / Time No Known Drug Allergies Allergy Verified 08/14/21 13:21 - Social History Does the pt smoke?: Yes Smoking Status: Current every day smoker Does the pt drink ETOH?: No Does the pt have substance abuse?: Yes - Immunizations Immunizations are current?: Yes - POLST Patient has POLST: No PD ED PE NORMAL - Vitals Vital signs reviewed: Yes - General General: Alert and oriented X 3, Well developed/nourished, Other (Appears to be in pain whimpering and with tears.) - HEENT HEENT: Atraumatic, PERRL, EOMI, Other (Multiple carious teeth both above and below on the right side there are teeth that have the enamel cracked away from them with exposed portions. These are covered with Cavitt. A molar on the right lower and an I tooth on the right upper) - Neck Neck: Supple, no meningeal sign, No bony TTP - Respiratory Respiratory: No respiratory distress - Derm Derm: Normal color, Warm and dry, No rash - Extremities Extremities: No deformity, No edema - Neuro Neuro: Alert and oriented X 3, reversing mill roller 2-12 intact, No motor deficit, No sensory deficit, Normal speech Eye Opening: Spontaneous Motor: Obeys Commands Verbal: Oriented GCS Score: 15 - Psych Psych: Normal mood, Normal affect Results - Vitals Vitals: Vital Signs - 24 hr 11/04/21 07:09 Heart Rate 71 Respiratory 12 Rate Blood Pressure 114/66 O2 Saturation 100 Oxygen O2 Source Room air PD MEDICAL DECISION MAKING - ED course Complexity details: considered differential, d/w patient ED course: 21-year-old female with carious broken teeth with cracked enamel is treated in the emerge department with Cavitt to the exposed areas and we will place her on some pain medication and antibiotic and have her follow-up with the dentist. Departure - Departure Disposition: 01 Home, Self Care Clinical Impression: Pain due to dental caries Condition: Stable Instructions: ED Tooth Pain Follow-Up: Austin Newton SR, MD [Primary Care Provider] - ASHLEY FELIX [Physician No Access] - Prescriptions: Amoxicillin 875 mg PO BID #14 tablet HYDROcod/ACETAM 5/325 [Anton 5/325] 1 - 2 tablet PO Q6H PRN #14 tablet PRN Reason: Pain Comments: Alley today looks like you have multiple teeth that are bothering you and we have placed on some antibiotic and pain medication we have given you some Cavitt which is a temporary dental filling material use as directed and as needed to cover areas that are sensitive to heat and cold. Follow-up with the dentist in the next 2 weeks. The antibiotic and pain medication have been E scribed to [facility] in [place].
[2021-11-04] MEDS ORDERED: HYDROcod/ACETAM 5/325 MG TABLET PO STA (07:36)
== END 2021-11-04 07:50 | disposition home or self-care (01) ==
LOC: ED 06:58
DX: O99.612 Diseases of the digestive system complicating pregnancy, second trimester (principal); K02.9 Dental caries, unspecified; F17.200 Nicotine dependence, unspecified, uncomplicated; O99.332 Smoking (tobacco) complicating pregnancy, second trimester; Z3A.00 Weeks of gestation of pregnancy not specified
CPT/HCPCS: 99282; A9270

== ENCOUNTER 2022-01-11 05:32 | Emergency (ER) | payer MEDICAID ==
--- OUTSIDE RECORDS SUMMARY | 2022-01-11 05:41 | EXTERNAL MEDICAL SUMMARY RPT | Continuity of Care Document ---
:2000 Author Organization [facility] Address [address] [place] [address] Phone Care Team Providers Name Role Phone Pearce Unavailable Unavailable Pearce Unavailable Unavailable Allergies No information. Encounters No information. Medications date description facility 20211212 1 ML Rho(D) Immune Globulin 0.3 MG/ML P refilled Syringe [facility] 20211212 0.5 ML Bordetella pertussis filamentous hemagglutinin [facility] vaccine, inactivated 0.01 MG/ML / Bordet yobany pertussis fimbriae 2/3 vaccine, inactivated 0.01 M G/ML / Bordetella pertussis pertactin vaccine, inactivated 0.006 MG/ML / Bordetella pertussis toxoi d vaccine, inactivated 0.005 MG/ML / diphtheria tox oid vaccine, inactivated 4 UNT/ML / tetanus toxoid [facility]ine, inactivated 10 UNT/ML Prefilled Syringe Problems date description facility 20220108 Encounter for supervision of normal [facility] third t 20220108 37 weeks gestation of [facility] 20211127 Encounter for supervision of normal pre gnancy, [facility] unspecified, 20211126 Encounter for supervision of normal [facility] second [id number] 26 weeks gestation of [facility] Procedures date description facility 20220108 [facility] 20211225 [facility] 20211225 [facility] 20211225 [facility] 20211212 [facility] 20211212 [facility] 20211212 [facility] [id number] [facility] 20211127 [facility] 20211127 [facility] 20211126 [facility] [id number] [facility] 20211023 [facility] Results No information. Vital Signs date measurement value source 20211023 weight_standard 92.53 lb 20211023 weight_metric 41.97 kg 20211023 height_standard 71 in 20211023 height_metric 180.34 cm 20211023 BP_systolic 108 mm[Hg] 20211023 BP_diastolic 60 mm[Hg] 20211023 BMI 28.4 kg/m2 20211113 weight_standard 93.67 lb 20211113 weight_metric 42.49 kg 20211113 height_standard 71 in 20211113 height_metric 180.34 cm 20211113 BP_systolic 110 mm[Hg] 20211113 BP_diastolic 64 mm[Hg] 20211113 BMI 28.8 kg/m2 20211127 weight_standard 94.97 lb 20211127 weight_metric 43.08 kg 20211127 height_standard 71 in 20211127 height_metric 180.34 cm 20211127 BP_systolic 106 mm[Hg] 20211127 BP_diastolic 58 mm[Hg] 20211127 BMI 29.2 kg/m2 20211212 weight_standard 94.8 lb 20211212 weight_metric 43 kg 20211212 height_standard 71 in 20211212 height_metric 180.34 cm 20211212 heart_rate 72 /min 20211212 BP_systolic 98 mm[Hg] 20211212 BP_diastolic 58 mm[Hg] 20211212 BMI 29.1 kg/m2 20211225 weight_standard 94.8 lb 20211225 weight_metric 43 kg 20211225 height_standard 71 in 20211225 height_metric 180.34 cm 20211225 heart_rate 85 /min 20211225 BP_systolic 102 mm[Hg] 20211225 BP_diastolic 66 mm[Hg] 20211225 BMI 29.1 kg/m2 20220108 weight_standard 97.98 lb 20220108 weight_metric 44.44 kg 20220108 height_standard 71 in 20220108 height_metric 180.34 cm 20220108 BP_systolic 106 mm[Hg] 20220108 BP_diastolic 64 mm[Hg] 20220108 BMI 30.1 kg/m2
[2022-01-11] MEDS ORDERED: oxyCODONE 5 MG TABLET PO STA (06:24)
[2022-01-11] MEDS ORDERED: CLINDAMYCIN 150 MG CAPSULE PO STA (06:28)
--- NOTE | 2022-01-11 06:29 | ED Physician Documentation ---
PD HPI HEENT - Stated complaint Stated Complaint: TOOTH PX - Chief complaint Chief Complaint: Heent - History obtained from History obtained from: Patient - History of Present Illness Timing - onset: How many days ago (4-5) Timing - details: Gradual onset, Waxing and waning Pain level now: 8 Location: Tooth (multiple teeth) Improves: Nothing Worsens: Everything Associated symptoms: No: Fever, Facial swelling - Additional information Additional information: c/o toothache, feels pain related to three teeth along right upper maxillary teeth. Denies injury. Has been evaluated in this ED before for dental pain, most recently two months ago, given amoxicillin and narcotic rx for pain. She is 37 weeks . Denies fever. Does not sound, per patient description, like she followed up sine ED visit 2 months ago with dentistry. Review of Systems Constitutional: reports: Reviewed and negative Throat: reports: Dental pain / toothache. 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 : None HEENT: None Psych: ADD/ADHD Musculoskeletal: None Derm: None - Past Surgical History Past Surgical History: Yes General: Cholecystectomy - Present Medications Home Medications: Ambulatory Orders Medication Instructions Recorded Confirmed Albuterol Sulf [Ventolin Hfa 2 puffs INH Q4HR PRN 07/02/18 08/07/21 Inhaler] Doxylamine Succinate [Unisom] 25 mg PO BID 30 Days #60 tablet 06/14/21 08/07/21 Famotidine [Pepcid] 20 mg PO DAILY #30 tablet 06/14/21 08/07/21 Ondansetron Odt [Zofran] 4 mg TL Q6H PRN #20 tablet 06/14/21 08/07/21 Pnv No.121/Iron/Folic Acid 1 tab PO DAILY 06/14/21 08/07/21 [ Multivitamin Tablet] Pyridoxine HCl (Vitamin B6) 25 mg PO BID 30 Days #60 tablet 06/14/21 08/07/21 [Pyridoxine HCl] Ondansetron Odt [Zofran] 4 mg TL Q6H PRN #10 tablet 08/14/21 Amoxicillin 875 mg PO BID #14 tablet 11/04/21 HYDROcod/ACETAM 5/325 [[place] 5/325] 1 - 2 tablet PO Q6H PRN #14 tablet 11/04/21 clindamycin HCL [Clindamycin HCl] 300 mg PO QID #20 cap 01/11/22 oxyCODONE [Roxicodone] 5 mg PO Q4-6H PRN #14 tablet 01/11/22 - Allergies Allergies/Adverse Reactions: Allergies Allergy/AdvReac Type Severity Reaction Status Date / Time No Known Drug Allergies Allergy Verified 01/11/22 05:51 - Social History Does the pt smoke?: Yes Smoking Status: Current every day smoker Does the pt drink ETOH?: Yes Does the pt have substance abuse?: Yes - Immunizations Immunizations are current?: Yes - POLST Patient has POLST: No PD ED PE NORMAL - Vitals Vital signs reviewed: Yes - General General: Alert and oriented X 3, Well developed/nourished, Other (crying throughout most of H+P) - HEENT HEENT: Moist mucous membranes, Other (overall poor dentition with widespread dental attrition. The gingiva does not appear to be inflamed and there is no evidence of abscess. There is tenderness to percussion of tooth 2, 5, and 6) - Neck Neck: Supple, no meningeal sign - Cardiac Cardiac: RRR, No murmur Results - Vitals Vitals: Oxygen O2 Source Room air PD MEDICAL DECISION MAKING - ED course Complexity details: reviewed old records, considered differential, d/w patient ED course: given vicodin and clindamycin for dental pains. She asks appropriate questions/voices appropriate concerns regarding the medications effecting her , and I explained that these medications are generally considered safe in (particularly this late in ) provided they are used when appropriate and that the narcotic medication is used in smallest amounts needed for briefest courses possible. I stressed the importance of following up with a dentist for better long-term plan beyond antibiotics and transient pain control Departure - Departure Disposition: 01 Home, Self Care Clinical Impression: Pain due to dental caries Condition: Good Instructions: ED Tooth Pain, NARCOTIC, Oral Prescriptions: clindamycin HCL [Clindamycin HCl] 300 mg PO QID #20 cap oxyCODONE [Roxicodone] 5 mg PO Q4-6H PRN #14 tablet PRN Reason: Pain Comments: There is no evidence of dental infection at this time, but based on the severity of your pain and the previous episode of dental abscess, an antibiotic has been given to you in the emergency department and a prescription for a 5-day course of the antibiotic has been electronically submitted to [facility] pharmacy in [place]. You were also given a dose of oxycodone in the ER and a prescription has been submitted to [facility] pharmacy as well. I am prescribing a short course of narcotic pain medication for you. These are potentially dangerous and addictive medications that should be used carefully. These medications may constipate you. Take an [id number] stool softener (docusate) twice daily with plenty of water while taking these medications. If you go 24 hours without a bowel movement, take [id number] miralax, per package instructions. Do not drink or drive while taking these medications. If you received narcotic or sedating medications while in the emergency department, do not drive for 24 hours. Store this medication in a safe, secure place and out of reach of children. It is a violation of federal law to give or sell this medication to another person or to use in a manner other than prescribed. The ED will not refill narcotic prescriptions, including prescriptions lost or stolen. To dispose of unwanted medications: 1. [facility] at [address] in [place] has a medication drop box. They accept prescription medications (in pill form) Friday through Friday 9:00 a.m. to 5:00 p.m. 2. The [facility] Department accepts prescription medications (in pill form only) for disposal year round. Call for more information. 3. Contact the [facility] for the next [facility] sponsored prescription drug collection event. , [phone], or [phone]; Discharge Date/Time: 01/11/22 08:06
[2022-01-11 08:00] VITALS: BP 121/68
== END 2022-01-11 08:06 | disposition home or self-care (01) ==
LOC: ED 05:32
DX: K02.9 Dental caries, unspecified (principal); F17.200 Nicotine dependence, unspecified, uncomplicated
CPT/HCPCS: 99282; 99283; A9270

== ENCOUNTER 2023-05-20 08:53 | Emergency (ER) | payer MEDICAID ==
[2023-05-20 09:19] VITALS: BP 118/75; O2SAT 100
--- NOTE | 2023-05-20 09:20 | ED Physician Documentation ---
PD HPI HEENT - Stated complaint Stated Complaint: THROAT SWELLING/PX, - Chief complaint Chief Complaint: Heent - History obtained from History obtained from: Patient - History of Present Illness Timing - onset: How many weeks ago (3) Timing - duration: Weeks (3) Timing - details: Gradual onset, Waxing and waning (had some mild improvement with PCN course from walk in but not resolved and pain back to higher level before even finishing the course. Has increased pain still.) Location: Tooth (left lower) Improves: No: Medication Associated symptoms: No: Fever, Swollen nodes, Facial swelling Recently seen: Clinic (2 1/2 weeks ago and Rx Penicillin and Diclofenac without improvement.) Review of Systems Constitutional: denies: Fever, Chills Throat: reports: Dental pain / toothache. 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 : None HEENT: None Psych: ADD/ADHD Musculoskeletal: None Derm: None - Past Surgical History Past Surgical History: Yes General: Cholecystectomy - Present Medications Home Medications: Ambulatory Orders Medication Instructions Recorded Confirmed Chlorhexidine Gluconate [Peridex] 15 ml MM TID #118 ml 05/20/23 HYDROcod/ACETAM 5/325 [[place] 5/325] 1 ea PO Q6H PRN #15 tablet 05/20/23 Meloxicam [Mobic] 7.5 mg PO BID 10 Days #20 tablet 05/20/23 clindamycin HCL [Clindamycin HCl] 300 mg PO TID 7 Days #20 cap 05/20/23 - Allergies Allergies/Adverse Reactions: Allergies Allergy/AdvReac Type Severity Reaction Status Date / Time No Known Drug Allergies Allergy Verified 05/20/23 09:12 - Social History Does the pt smoke?: Yes Smoking Status: Current every day smoker Does the pt drink ETOH?: Yes Does the pt have substance abuse?: Yes - Immunizations Immunizations are current?: Yes - POLST Patient has POLST: No PD ED PE NORMAL - Vitals Vital signs reviewed: Yes - General General: Alert and oriented X 3, Well developed/nourished - HEENT HEENT: Pharynx benign. No: Dentition benign (marked cavities. Notable left lower molar with half tooth missing, not amenable to temporary fillling. some swelling of gum. Very tender. ) - Neck Neck: Supple, no meningeal sign, No adenopathy - Cardiac Cardiac: RRR, No murmur - Respiratory Respiratory: Clear bilaterally - Derm Derm: Normal color, Warm and dry, No rash Results - Vitals Vitals: Vital Signs - 24 hr 05/20/23 09:06 Temperature 37.1 C Heart Rate 50 L Respiratory 15 Rate Blood Pressure 118/75 O2 Saturation 100 Oxygen O2 Source Room air PD Medical Decision Making - ED course Complexity details: considered differential (dental pain and infection at caries left lower molar. No abscess in area. Will try different antibioc, NSAID, and so me pain meds. ), d/w patient Departure - Departure Disposition: 01 Home, Self Care Clinical Impression: Dental infection Condition: Stable Record reviewed to determine appropriate education?: Yes Instructions: ED Abscess Tooth Prescriptions: clindamycin HCL [Clindamycin HCl] 300 mg PO TID 7 Days #20 cap Meloxicam [Mobic] 7.5 mg PO BID 10 Days #20 tablet HYDROcod/ACETAM 5/325 [[place] 5/325] 1 ea PO Q6H PRN #15 tablet PRN Reason: Pain Chlorhexidine Gluconate [Peridex] 15 ml MM TID #118 ml Comments: Use the clindamycin antibiotic as directed for the next week. I also wrote for a different anti-inflammatory called meloxicam to see if it helps a little better. There would be likely inadequate by itself for the pain initially so I wrote for hydrocodone/acetaminophen to use every 6 hours if needed. Over this would just be the first few days. You can use Tylenol 500 to 650 mg every 6 hours if needed for medium pain. He may benefit from a antiseptic mouth rinse around the area of the cavities to get rid of some of the germ load on the surface. I wrote for prescription there as well. I sent your prescriptions to your preferred pharmacy. Recheck if not improving well over the next few days and resolved by 3 to 5 days. Subsequently follow-up with a dentist for more definitive care of the tooth cavity. I am prescribing a short course of narcotic pain medication for you. These are potentially dangerous and addictive medications that should be used carefully. These medications may constipate you. Take an [id number] stool softener such as docusate twice daily with plenty of water while taking these medications. If you go 24 hours without a bowel movement, take [id number] MiraLAX, per package instructions. Do not drink or drive while taking these medications. If you received narcotic or sedating medications while in the emergency department do not drive for 24 hours. Store this medication in a safe, secure place and out of reach of children. It is a violation of federal law to give or sell this medication to another person or to use in a manner other than prescribed. The ED will not refill narcotic prescriptions, including prescriptions lost or stolen. You can dispose of unwanted medications at the [facility]'s office or at several pharmacies such as [facility]. Forms: PCP List Discharge Date/Time: 05/20/23 10:06
[2023-05-20] MEDS ORDERED: CLINDAMYCIN 150 MG CAPSULE PO STA (09:48)
[2023-05-20] MEDS ORDERED: HYDROcod/ACETAM 5/325 MG TABLET PO STA (09:48)
[2023-05-20] MEDS ORDERED: NAPROXEN 250 MG TABLET PO STA (09:49)
== END 2023-05-20 10:06 | disposition home or self-care (01) ==
LOC: ED 08:53
DX: K04.7 Periapical abscess without sinus (principal); F17.200 Nicotine dependence, unspecified, uncomplicated
CPT/HCPCS: 99282; 99283; A9270